=== PATIENT | male | born 1950 | race Caucasian/White ===

== ENCOUNTER → 2016-08-18 | Outpatient (CLI) | payer MEDICARE, OTHER, SELFPAY | LOC: MW.CHPS 08:00 | DX: L85.8 Other specified epidermal thickening (principal) | CPT/HCPCS: G0463 ==

== ENCOUNTER → 2016-09-06 | Outpatient (CLI) | payer MEDICARE, OTHER, SELFPAY | LOC: MW.CHPS 08:00 | PROVIDERS: ATTEND Physician Assistant | DX: L85.8 Other specified epidermal thickening (principal); Z98.890 Other specified postprocedural states | CPT/HCPCS: G0463 ==

== ENCOUNTER 2016-09-21 07:53 | Day surgery (SDC) | payer MEDICARE, OTHER, SELFPAY ==
[~2016-09-21 07:53] MED LIST: Bupivacaine 0.25%/EPINEPHrine 1:200,000 10 ML SDV ONE; Lidocaine 2% 5 ML SDV ONE; Midazolam 1 MG/ML 2 ML SDV ONE; Ondansetron 4 MG/2 ML SDV ONE; Propofol 200 MG/20 ML SDV ONE; Rocuronium 10 MG/ML 10 ML Syringe ONE; Succinylcholine/Normal Saline 200 MG/10 ML Syringe ONE; fentaNYL 250 MCG/5 ML SDV ONE
[2016-09-21] MEDS ORDERED: Clindamycin Phosphate in D5W 600 MG in Premix Bag 1 BAG IV ONE ×2 (08:00)
[2016-09-21] MEDS ORDERED: Acetaminophen/HYDROcodone 325-5 MG Tab PO PRN (08:00)
[2016-09-21] MEDS ORDERED: Bupivacaine 0.25%/EPINEPHrine 1:200,000 10 ML SDV INJECT ONE (08:00)
[2016-09-21] MEDS ORDERED: Lactated Ringers 1,000 ML IV SCH (08:00)
[2016-09-21] MEDS ORDERED: Albuterol/Ipratropium 3.0-0.5 MG/3 ML Neb Soln NEB ONE (09:06)
--- NOTE | 2016-09-21 09:10 | PCM.PREANE ---
Preanesthetic Assessment - Anesthesia/Transfusion/Family Hx Anesthesia History: Prior Anesthesia Without Reaction Family History of Anesthesia Reaction: No Transfusion History: No Prior Transfusion(s) - Review of Systems General: No Symptoms Pulmonary: No Symptoms Cardiovascular: No Symptoms Gastrointestinal: No symptoms Neurological: No Symptoms - Physical Assessment NPO Status Date: 09/21/16 NPO Status Time: 06:00 (black coffee with am meds) O2 Sat by Pulse Oximetry: 91 Respiratory Rate: 18 Vital Signs: Last Vital Signs Temp 35.9 C 09/21/16 08:19 Pulse 100 09/21/16 08:19 Resp 18 09/21/16 08:19 BP 137/73 09/21/16 08:19 Pulse Ox 91 L 09/21/16 08:19 Height: 1.8 m Weight: 134.263 kg ASA Class: 3 Mental Status: Alert & Oriented x3 Airway Class: Mallampati = 2 Dentition: Reports: Partial Lungs: Decreased breath sounds, Wheezing Cardiovascular: Regular Rate, Regular Rhythm - Allergies Allergies/Adverse Reactions: Allergies Allergy/AdvReac Type Severity Reaction Status Date / Time No Known Allergies Allergy Verified 07/20/16 13:30 - Anesthesia Plan Pre-Op Medication Ordered: Other (duoneb nebulizer) - Acknowledgements Anesthesia Type Planned: General Anesthesia Pt an Appropriate Candidate for the Planned Anesthesia: Yes Alternatives and Risks of Anesthesia Discussed w Pt/Guardian: Yes Pt/Guardian Understands and Agrees with Anesthesia Plan: Yes Additional Comments: surgeon requests nasotracheal intubation PreAnesthesia Questionnaire HEENT History: Reports: None Cardiovascular History: Reports: Hypertension Respiratory History: Reports: Other (see below) Other Respiratory History: denies asthma but states he has seasonal allergies and gets SOB at times Musculoskeletal History: Reports: Arthritis, Back pain, chronic Neurological History: Reports: Cerebral palsy Psychiatric History: Reports: Anxiety, Depression Endocrine/Metabolic History: Reports: Obesity/BMI 30+ - Past Surgical History Head Surgeries/Procedures: Reports: None HEENT Surgical History: Reports: Naso-sinus surgery, Tonsillectomy Dermatological Surgical History: Reports: Other (see below) - SUBSTANCE USE Smoking Status *Q: Current Every Day Smoker Tobacco Use Within Last Twelve Months: Cigarettes Recreational Drug Use History: No - HOME MEDS Home Medications: Home Meds Albuterol [Ventolin HFA] 1 puff INH ASDIRECTED PRN 07/20/16 [History] Fluticasone Propionate [Flonase Allergy Relief] 1 spray NASBOTH DAILY 07/20/16 [ History] Furosemide [Lasix] 40 mg PO DAILY 07/20/16 [History] Losartan Potassium 100 mg PO DAILY 07/20/16 [History] oxyCODONE HCl/Acetaminophen [Endocet 10-325 mg Tablet] 1 tab PO ASDIRECTED PRN 07/20/16 [History] - CURRENT (IN HOUSE) MEDS Current Meds: Current Medications Hydrocodone Bitart/Acetaminophen ([place] 325-5 Mg) 1 tab PO Q4H PRN PRN Reason: Pain Albuterol/Ipratropium (Duoneb 3.0-0.5 Mg/3 Ml) 3 ml NEB ONETIME ONE Stop: 09/21/16 09:07 Lactated Ringer's (Ringers, Lactated) 1,000 mls @ 125 mls/hr IV ASDIRECTED CHAY Last Admin: 09/21/16 08:20 Dose: 125 mls/hr Discontinued Medications Bupivacaine HCl/Epinephrine Bitart (Marcaine 0.25%/Epinephrine 1:200,000) 20 ml INJECT ONETIME ONE Stop: 09/21/16 08:01 Bupivacaine HCl/Epinephrine Bitart (Marcaine 0.25%/Epinephrine 1:200,000) Confirm Administered Dose 20 ml .ROUTE .STK-MED ONE Stop: 09/21/16 07:32 Fentanyl (Sublimaze) Confirm Administered Dose 250 mcg .ROUTE .STK-MED ONE Stop: 09/21/16 07:40 Clindamycin Phosphate 600 mg/ (Premix) 50 mls @ 150 mls/hr IV ONETIME ONE Stop: 09/21/16 08:19 Lidocaine (Xylocaine-Mpf 2%) Confirm Administered Dose 5 ml .ROUTE .STK-MED ONE Stop: 09/21/16 07:40 Midazolam HCl (Versed 1 Mg/Ml) Confirm Administered Dose 2 mg .ROUTE .STK-MED ONE Stop: 09/21/16 07:40 Ondansetron HCl (Zofran) Confirm Administered Dose 4 mg .ROUTE .STK-MED ONE Stop: 09/21/16 07:40 Propofol (Diprivan 20 Ml) Confirm Administered Dose 200 mg .ROUTE .STK-MED ONE Stop: 09/21/16 07:40 Rocuronium [place] (Zemuron) Confirm Administered Dose 100 mg .ROUTE .STK-MED ONE Stop: 09/21/16 07:40 Succinylcholine Chloride (Succinylcholine In Ns Pf) Confirm Administered Dose 200 mg .ROUTE .STK-MED ONE Stop: 09/21/16 07:40 Preanesthetic Assessment - ANESTHESIA/TRANSFUSION/FAMILY HX Anesthesia/Transfusion History: No Prior Transfusion(s), Prior Anesthesia (sinus , T+A: no anesthesia issues noted) Family History of Anesthesia Reaction: No - PHYSICAL ASSESSMENT O2 Sat by Pulse Oximetry: 91 RR: 18 Vital Signs: Last Vital Signs Temp 35.9 C 09/21/16 08:19 Pulse 100 09/21/16 08:19 Resp 18 09/21/16 08:19 BP 137/73 09/21/16 08:19 Pulse Ox 91 L 09/21/16 08:19 Height: 1.8 m Weight: 134.263 kg NPO Status Date: 09/21/16 NPO Status Time: 06:00 - ALLERGIES Allergies/Adverse Reactions: Allergies Allergy/AdvReac Type Severity Reaction Status Date / Time No Known Allergies Allergy Verified 07/20/16 13:30
[2016-09-21] MEDS ORDERED: Propofol 200 MG/20 ML SDV ONE (10:27)
[2016-09-21] MEDS ORDERED: Albuterol 6.7 GM Inhaler INH ONE (10:28)
[2016-09-21] MEDS ORDERED: Ipratropium 12.9 GM Inhaler ONE (10:28)
[2016-09-21] MEDS ORDERED: ePHEDrine 50 MG/ML SDV ONE (11:16)
[2016-09-21] MEDS ORDERED: Neostigmine Methylsulfate 1 MG/ML 5 ML Syringe ONE (11:35)
[2016-09-21] MEDS ORDERED: Lidocaine 2% Jelly 30 ML Tube ONE (11:51)
[2016-09-21] MEDS ORDERED: diphenhydrAMINE 50 MG/ML SDV ONE (12:51)
[2016-09-21] MEDS ORDERED: diphenhydrAMINE 50 MG/ML SDV IVPUSH SCH (13:00)
--- NOTE | 2016-09-21 13:24 | PCM.POSTAN ---
POST ANESTHESIA ASSESSMENT - MENTAL STATUS Mental Status: alert (Plan to limit oral intacke until wearing off of the local spray done in the oropharynx/v cords at beginning of the case), oriented - RESPIRATORY Respiratory Status: respiratory rate WNL, airway patent, O2 saturation stable - CARDIOVASCULAR CV Status: pulse rate WNL, blood pressure stable - GASTROINTESTINAL GI Status: no symptoms - POST OP HYDRATION Hydration Status: adequate & stable
--- NOTE | 2016-09-21 14:03 | PCM48HPAN ---
Post Anesthesia Note - EVALUATION WITHIN 48HRS OF ANESTHETIC Vital Signs in Normal Range: Yes Patient Participated in Evaluation: Yes Respiratory Function Stable: Yes Airway Patent: Yes Cardiovascular Function Stable: Yes Hydration Status Stable: Yes Pain Control Satisfactory: Yes Nausea and Vomiting Control Satisfactory: Yes Mental Status Recovered: Yes - COMMENTS/OBSERVATIONS Free Text/Narrative:: The lip looks great, patient able to talk out of the left side of his mouth, and he was happy with the anesthesia care.
[2016-09-21 14:18] VITALS: BP 99/62
--- NOTE | 2016-09-22 13:00 | PCM.OPNOTE ---
- General Post-Op/Procedure Note Date of Surgery/Procedure: 09/21/16 Operative Procedure(s): 1. excision of malignant lesion to upper lip through and through 5x5cm. 2. lip switch procedure from lower lip for reconstruction of defect (pedicled flap) Pre Op Diagnosis: upper lip malignancy Post-Op Diagnosis: Same Anesthesia Technique: General ET tube (nasal), Local Primary Surgeon: Cinthya Toribio Bereavement Counselor: Lisset Lowe Complications: None Condition: Good
--- NOTE | 2016-09-22 20:46 | OR ---
SURGEON: VALE SALAMANCA MD DATE OF PROCEDURE: 09/21/2016 PREOPERATIVE DIAGNOSIS: Upper lip malignancy. POSTOPERATIVE DIAGNOSIS: Upper lip malignancy, recurrent. OPERATIVE PROCEDURES: 1. Excision of malignant lesion to upper lip through and through 5 x 5 cm. 2. Lip switch procedure from lower lip for reconstruction of the defect (pedicle flap). LAMP TESTER AND INSPECTOR: Lisset Lowe. ANESTHESIA: General nasal endotracheal tube with local anesthesia. INDICATIONS: Mr. Ragsdale is a 65-year-old gentleman with an upper lip malignancy. 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 There is actinic change at the borders. Previous excision and closure was elected by the patient and unfortunately, the lip lesion recurred and continued to grow. Risks and benefits of excision with margins were discussed with him and the need for a lip switch procedure to close the upper lip was discussed. He would have like to avoid this, however, it is not possible with the current lesion and previous excision. Risks and benefits were discussed thoroughly and he was in agreement to proceed. Risks were including, but not limited to, bleeding, infection, damage to underlying or overlying structures, possible need for future interventions, possible scarring, and possible difficulties with lip tethering of the center portion for 2 weeks after the surgery. He understands that and will be compliant. PROCEDURE IN DETAIL: After informed consent was obtained and placed on the chart, the patient was brought to the operating theater and in supine position. After adequate nasal endotracheal tube intubation was completed, local anesthetic was infiltrated into the area, was prepped and draped in normal fashion using Betadine cleansing solution. Once adequately prepped and draped, attention was then paid to the side of the flaps. The malignancy to the upper lip was ulcerated, large, and necrotic. Margins were taken to ensure a cuff of normal tissue. Once adequately excised with a cuff of normal tissue, attention was then paid to meticulous hemostasis. Once adequate hemostasis, the area was irrigated and attention was paid to the planning of the lower lip flap. The upper lip lesion was too large for frozen sections, so was sent for permanent. Normal tissue was appreciated on all aspects of the excision. Once adequately excised, attention was then paid to planning of the lower lip flap. This was done slightly off midline to the right side taken to account the rotational arch. The lower lip excision was designed to go around the mentalis area to avoid dissection over the skin crease. It was measured to be slightly smaller than the upper lip defect. The approximately one-third at the lower lip to allow for closure and no significant complications here. After planning, attention was then paid to dissection of the lower lip skin flap measuring 4 x 5 cm. This was dissected through the skin taking care to leave the blood supply from the labial artery intact from the left side. This was rotated into place and closed in a layered fashion using 4-0 and 5-0 chromic stitches in a running fashion on the mucosal layer. [id number] 4-0 and 5-0 Monocryl stitches for the muscle layer and 5- 0 Prolene in bursts of running stitches for the skin. Great care was taken to avoid compromise of the pedicle. The lower lip flap remains tethered by its pedicle and lip skin. This is at the central portion of the lip leaving lateral space on both sides. With the inset, there was an excellent cosmetic outcome and good hemostasis. He was extubated in the operating room, and appreciated to be in stable condition prior to discharge home. FOLLOWUP INSTRUCTIONS: The patient will see us Monday in clinic, sooner if any problems, questions, or concerns. We will recheck at any point should he have any issues or questions. He will shower per usual. Wash it gently and apply only topical antibiotic ointment. He will not use any other cleansing products. He will cut back smoking as much as possible as well. [id number] / CHLOE /[id number]
== END 2016-09-21 14:25 | disposition home or self-care (01) ==
LOC: MW.SDS 07:53
PROVIDERS: ATTEND Plastic Surgery
PROC: 0CX0XZZ Transfer Upper Lip, External Approach (ICD-10-PCS; principal; 2016-09-21)
PROC: 0CB0XZZ Excision of Upper Lip, External Approach (ICD-10-PCS; 2016-09-21)
DX: C00.0 Malignant neoplasm of external upper lip (principal); I10 Essential (primary) hypertension; F17.210 Nicotine dependence, cigarettes, uncomplicated; M19.90 Unspecified osteoarthritis, unspecified site; G80.9 Cerebral palsy, unspecified; F41.9 Anxiety disorder, unspecified; F32.9 Major depressive disorder, single episode, unspecified; E66.9 Obesity, unspecified; Z79.899 Other long term (current) drug therapy; Z98.890 Other specified postprocedural states; Z90.89 Acquired absence of other organs; Z68.41 Body mass index [BMI] 40.0-44.9, adult
CPT/HCPCS: 40525; 88307; 94664; A9270; J2250; J2405; J3010; J7120; 00164; 00300; J2704

== ENCOUNTER → 2016-09-26 | Outpatient (CLI) | payer MEDICARE, OTHER, SELFPAY | LOC: MW.CHPS 08:00 | PROVIDERS: ATTEND Plastic Surgery | DX: C44.02 Squamous cell carcinoma of skin of lip (principal); Z48.817 Encounter for surgical aftercare following surgery on the skin and subcutaneous tissue | CPT/HCPCS: G0463 ==

== ENCOUNTER → 2016-09-29 | Outpatient (CLI) | payer MEDICARE | LOC: MW.CHPS 08:00 | PROVIDERS: ATTEND Plastic Surgery | DX: T81.31XA Disruption of external operation (surgical) wound, not elsewhere classified, initial encounter (principal); C44.02 Squamous cell carcinoma of skin of lip | CPT/HCPCS: 12020 ==

== ENCOUNTER 2016-10-12 06:19 | Day surgery (SDC) | payer MEDICARE, SELFPAY ==
--- NOTE | 2016-10-12 06:54 | PCM.PREANE ---
Preanesthetic Assessment - Anesthesia/Transfusion/Family Hx Anesthesia History: Prior Anesthesia Without Reaction Type of Anesthesia Reaction: Unknown Family History of Anesthesia Reaction: No Transfusion History: No Prior Transfusion(s) Anesthesia/Transfusion Comment: no known problems - Review of Systems General: No Symptoms Pulmonary: Shortness of Breath Cardiovascular: No Symptoms Gastrointestinal: No symptoms Neurological: No Symptoms Other: Reports: None - Physical Assessment O2 Sat by Pulse Oximetry: 89 Respiratory Rate: 16 Vital Signs: Last Vital Signs Temp 36.5 C 10/12/16 06:27 Pulse 104 H 10/12/16 06:27 Resp 16 10/12/16 06:27 BP 141/80 H 10/12/16 06:27 Pulse Ox 89 L 10/12/16 06:27 Height: 1.8 m Weight: 130.181 kg ASA Class: 3 Mental Status: Alert & Oriented x3 Airway Class: Mallampati = 2 Dentition: Reports: Partial (upper) Thyro-Mental Finger Breadths: 3 Mouth Opening Finger Breadths: 1 ROM/Head Extension: Limited/Partial Lungs: Clear to auscultation, Normal respiratory effort Cardiovascular: Regular Rate, Regular Rhythm - Allergies Allergies/Adverse Reactions: Allergies Allergy/AdvReac Type Severity Reaction Status Date / Time No Known Allergies Allergy Verified 07/20/16 13:30 - Blood Blood Available: No - Anesthesia Plan Pre-Op Medication Ordered: None - Acknowledgements Anesthesia Type Planned: MAC Pt an Appropriate Candidate for the Planned Anesthesia: Yes Alternatives and Risks of Anesthesia Discussed w Pt/Guardian: Yes Pt/Guardian Understands and Agrees with Anesthesia Plan: Yes PreAnesthesia Questionnaire HEENT History: Other HEENT History: wears glasses, 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 Cardiovascular History: Reports: Hypertension Respiratory History: Reports: COPD (sats 89% this morning, can not walk two blocks due to SOB. 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 of lip lesion with subsequent rotational skin flap) Dermatological Surgical History: Reports: Other (see below) - SUBSTANCE USE Smoking Status *Q: Current Every Day Smoker Tobacco Use Within Last Twelve Months: Cigarettes Recreational Drug Use History: No - HOME MEDS Home Medications: Home Meds Albuterol [Ventolin HFA] 1 puff INH ASDIRECTED PRN 07/20/16 [History] Fluticasone Propionate [Flonase Allergy Relief] 1 spray NASBOTH DAILY 07/20/16 [ History] Furosemide [Lasix] 40 mg PO DAILY 07/20/16 [History] Losartan Potassium 100 mg PO DAILY 07/20/16 [History] oxyCODONE HCl/Acetaminophen [Endocet 10-325 mg Tablet] 1 tab PO ASDIRECTED PRN # 30 tablet 09/21/16 [Rx] - CURRENT (IN HOUSE) MEDS Current Meds: Current Medications Bacitracin (Bacitracin Oint) 1 gm TOP ONETIME ONE Stop: 10/12/16 07:01 Bupivacaine HCl/Epinephrine Bitart ([place] 0.25%/Epinephrine 1:200,000) 10 ml INJECT ONETIME ONE Stop: 10/12/16 08:01 Clindamycin Phosphate 600 mg/ (Premix) 50 mls @ 150 mls/hr IV ONETIME ONE Stop: 10/12/16 07:19 Lactated Ringer's (Ringers, Lactated) 1,000 mls @ 125 mls/hr IV ASDIRECTED CHAY Last Admin: 10/12/16 06:31 Dose: 125 mls/hr
[2016-10-12] MEDS ORDERED: Albuterol/Ipratropium 3.0-0.5 MG/3 ML Neb Soln NEB ONE (06:57)
[2016-10-12] MEDS ORDERED: Lactated Ringers 1,000 ML IV SCH (07:00)
[2016-10-12] MEDS ORDERED: Clindamycin Phosphate in D5W 600 MG in Premix Bag 1 BAG IV ONE ×2 (07:00)
[2016-10-12] MEDS ORDERED: Bacitracin Oint 28.35 GM Tube TOP ONE (07:00)
[2016-10-12] MEDS ORDERED: Midazolam 1 MG/ML 2 ML SDV ONE (07:15)
[2016-10-12] MEDS ORDERED: Propofol 200 MG/20 ML SDV ONE (07:15)
[2016-10-12] MEDS ORDERED: Lidocaine 2% 5 ML SDV ONE (07:15)
[2016-10-12] MEDS ORDERED: Sodium Chloride 0.9% 20 ML ONE (07:19)
[2016-10-12] MEDS ORDERED: Bupivacaine 0.25%/EPINEPHrine 1:200,000 10 ML SDV ONE ×2 (07:24→08:15)
[2016-10-12] MEDS ORDERED: Bupivacaine 0.25%/EPINEPHrine 1:200,000 10 ML SDV INJECT ONE (08:00)
[2016-10-12] MEDS ORDERED: fentaNYL 100 MCG/2 ML SDV IVPUSH PRN (08:43)
[2016-10-12] MEDS ORDERED: Dexamethasone 4 MG/ML 5 ML MDV ONE (08:54)
--- NOTE | 2016-10-12 09:18 | PCM.POSTAN ---
POST ANESTHESIA ASSESSMENT - MENTAL STATUS Mental Status: alert, oriented - RESPIRATORY Respiratory Status: respiratory rate WNL, airway patent, O2 saturation stable - CARDIOVASCULAR CV Status: pulse rate WNL, blood pressure stable - GASTROINTESTINAL GI Status: no symptoms - POST OP HYDRATION Hydration Status: adequate & stable
[2016-10-12 11:12] VITALS: BP 118/62
--- NOTE | 2016-10-12 16:26 | PCM.OPNOTE ---
- General Post-Op/Procedure Note Date of Surgery/Procedure: 10/12/16 Operative Procedure(s): division and inset of cross lip flap Pre Op Diagnosis: cross lip flap for squamous cell Post-Op Diagnosis: Same Anesthesia Technique: Local, MAC Primary Surgeon: Cinthya Toribio Rail Operator: Lisset Lowe Complications: None Condition: Good Free Text/Narrative:: Intake & Output 10/12/16 10/12/16 10/12/16 07:59 15:59 23:59 Intake Total 900 Balance 900
--- NOTE | 2016-10-12 21:21 | OR ---
SURGEON: VALE SALAMANCA MD DATE OF PROCEDURE: 10/12/2016 PREOPERATIVE DIAGNOSIS: Cross lip flap status post squamous cell carcinoma excision, need for division. POSTOPERATIVE DIAGNOSIS: Cross lip flap status post squamous cell carcinoma excision, need for division. PROCEDURE: Division of cross lip flap and inset. INDICATIONS: Mr. Ragsdale is a 65-year-old gentleman with squamous cell cancer. Risks and benefits of release of the cross lip flap for reconstruction were discussed with him and he is in agreement to proceed. Risks were including, but not limited to, bleeding, infection, damage to underlying or overlying structures, possible need for future interventions and possible scarring. PROCEDURE IN DETAIL: After informed consent was obtained and placed on the chart, the patient was brought to the operating theater and laid in the supine position. After a time- out had been completed to confirm side and site, the area was injected with local anesthetic. After adequate injection, the cross lip flap was clamped and appreciated to be of good viability without the pedicle blood supply. The pedicle was then transected and the remaining portion of the skin was inset in an appropriate fashion. This was done using deep chromic stitches for the mucosa, Monocryls for the deeper layers, and 4-0 Prolene for the skin. This was then dressed with bacitracin. The patient tolerated the procedure well. All counts and needles were correct at the end the case. FOLLOWUP INSTRUCTIONS: The patient will see us next week in clinic, sooner if any problems, questions, or concerns. He will continue to take his home medications for pain control. HEGGTHE / MODL /[id number]
== END 2016-10-12 10:40 | disposition home or self-care (01) ==
LOC: MW.SDS 06:19
PROVIDERS: ATTEND Plastic Surgery
PROC: 0CX Mouth and Throat, Transfer (ICD-10-PCS; principal; 2016-10-12)
DX: C44.02 Squamous cell carcinoma of skin of lip (principal); J44.9 Chronic obstructive pulmonary disease, unspecified; I10 Essential (primary) hypertension; F17.210 Nicotine dependence, cigarettes, uncomplicated; M19.90 Unspecified osteoarthritis, unspecified site; G80.9 Cerebral palsy, unspecified; F41.9 Anxiety disorder, unspecified; F32.9 Major depressive disorder, single episode, unspecified; E66.9 Obesity, unspecified; Z79.51 Long term (current) use of inhaled steroids; Z79.899 Other long term (current) drug therapy; Z98.890 Other specified postprocedural states; Z90.89 Acquired absence of other organs; Z68.41 Body mass index [BMI] 40.0-44.9, adult
CPT/HCPCS: 15630; 94664; J1100; J2250; J7120; 00300; J2704

== ENCOUNTER → 2016-10-18 | Outpatient (CLI) | payer MEDICARE | LOC: MW.CHPS 08:00 | PROVIDERS: ATTEND Plastic Surgery | DX: Z48.817 Encounter for surgical aftercare following surgery on the skin and subcutaneous tissue (principal) ==

== ENCOUNTER → 2016-10-27 | Outpatient (CLI) | payer MEDICARE | LOC: MW.CHPS 08:00 | PROVIDERS: ATTEND Physician Assistant | DX: Z48.817 Encounter for surgical aftercare following surgery on the skin and subcutaneous tissue (principal) ==

== ENCOUNTER 2019-04-19 08:38 | Emergency (ER) | payer MEDICARE, SELFPAY ==
[2019-04-19] MEDS ORDERED: Albuterol/Ipratropium 3.0-0.5 MG/3 ML Neb Soln NEB ONE (08:40)
[2019-04-19] MEDS ORDERED: methylPREDNISolone Sodium Succinate 125 MG/2 ML SDV IVPUSH ONE (08:40)
[2019-04-19] MEDS ORDERED: Furosemide 40 MG/4 ML VIAL IVPUSH ONE (08:40)
--- NOTE | 2019-04-19 08:42 | EDM.PDOC ---
ED HPI GENERAL MEDICAL PROBLEM - General Stated Complaint: SOB Time Seen by Provider: 04/19/19 08:41 Source of Information: Reports: Patient - History of Present Illness INITIAL COMMENTS - FREE TEXT/NARRATIVE: HISTORY AND PHYSICAL: History of present illness: PT presents via ambulance with shortness of breath, O2 sat 60% at home with EMS arrival He was provided DuoNeb and Solu-Medrol on arrival requiring 6-8 L nonrebreather , who is alert on initial arrival and was transferred to our bed however shortly thereafter altered mental status developed ABG has returned with pH of 7.1 ] Review of systems: As per history of present illness and below otherwise all systems reviewed and negative. Past medical history: As per history of present illness and as reviewed below otherwise noncontributory. Surgical history: As per history of present illness and as reviewed below otherwise noncontributory. Social history: No reported history of drug or alcohol abuse. Family history: As per history of present illness and as reviewed below otherwise noncontributory. Physical exam: HEENT: Atraumatic, normocephalic, pupils reactive, negative for conjunctival pallor or scleral icterus, mucous membranes moist, throat clear, neck supple, nontender, trachea midline. Lungs: Clear to auscultation, breath sounds equal bilaterally, chest nontender. Heart: S1S2, regular, negative for clicks, rubs, or JVD. Abdomen: Soft, nondistended, nontender. Negative for masses or hepatosplenomegaly. Negative for costovertebral tenderness. Pelvis: Stable nontender. Genitourinary: Deferred. Rectal: Deferred. Extremities: Atraumatic, negative for cords or calf pain. Neurovascular unremarkable. Neuro: Awake, alert, oriented. Cranial nerves II through XII unremarkable. Cerebellum unremarkable. Motor and sensory unremarkable throughout. Exam nonfocal. Shortly after arrival patient began to have altered mental status Diagnostics: [CBC CMP UA troponin INR blood cultures 2 BN peptide Chest 1 view EKG ] Therapeutics: [ normal saline Lasix 40 mg IV DuoNeb Solu-Medrol ] Impression: Hypoxia [ short of breath] resp failure Respiratory acidosis CHF Definitive disposition and diagnosis as appropriate pending reevaluation and review of above. - Related Data Allergies Allergy/AdvReac Type Severity Reaction Status Date / Time No Known Allergies Allergy Verified 04/19/19 08:47 Home Meds: Home Meds Albuterol [Ventolin HFA] 1 puff INH ASDIRECTED PRN 07/20/16 [History] Fluticasone Propionate [Flonase Allergy Relief] 1 spray NASBOTH DAILY 07/20/16 [ History] Furosemide [Lasix] 40 mg PO DAILY 07/20/16 [History] Losartan Potassium 100 mg PO DAILY 07/20/16 [History] oxyCODONE HCl/Acetaminophen [Endocet 10-325 mg Tablet] 1 tab PO ASDIRECTED PRN # 30 tablet 09/21/16 [Rx] Past Medical History HEENT History: Other HEENT History: wears glasses, 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 - Past Surgical History HEENT Surgical History: Reports: Naso-Sinus Surgery, Tonsillectomy, Other (See Below) Dermatological Surgical History: Reports: Other (See Below) ED ROS GENERAL - Review of Systems Review Of Systems: See Below ED EXAM, GENERAL - Physical Exam Exam: See Below Course - Vital Signs Last Recorded V/S: Last Vital Signs Temp 97.5 F 04/19/19 09:00 Pulse 84 04/19/19 09:00 Resp 24 H 04/19/19 09:00 BP 138/84 04/19/19 09:00 Pulse Ox 96 04/19/19 09:00 - Orders/Labs/Meds Orders: Active Orders 24 hr Category Date Time Status EKG Documentation Completion [RC] STAT Care 04/19/19 08:41 Active RT Aerosol Therapy [RC] ASDIRECTED Care 04/19/19 08:40 Active Chest 1V Frontal [CR] Stat Exams 04/19/19 09:38 Ordered B-TYPE NATRIURETIC PEPTIDE,BNP [CHEM] Stat Lab 04/19/19 08:45 Received COMPREHENSIVE METABOLIC PN,CMP [CHEM] Stat Lab 04/19/19 08:45 Received CULTURE BLOOD [BC] Stat Lab 04/19/19 08:45 Received CULTURE BLOOD [BC] Stat Lab 04/19/19 08:58 Received TROPONIN I [CHEM] Stat Lab 04/19/19 08:45 Received Sodium Chloride 0.9% [Normal Saline] 1,000 ml Med 04/19/19 08:45 Active IV STAT Blood Culture x2 Reflex Set [OM.PC] Stat Oth 04/19/19 08:40 Ordered Medication Orders Sodium Chloride (Normal Saline) 1,000 mls @ 125 mls/hr IV STAT CHAY Last Admin: 04/19/19 08:51 Dose: 125 mls/hr Labs: Laboratory Tests 04/19/19 04/19/19 04/19/19 Range/Units 08:45 08:45 08:55 WBC 13.16 H (4.0-11.0) K/uL RBC 5.80 (4.50-5.90) M/uL Hgb 20.7 H (13.0-17.0) g/dL Hct 62.7 H (38.0-50.0) % MCV 108.1 H (80.0-98.0) fL MCH 35.7 H (27.0-32.0) pg MCHC 33.0 (31.0-37.0) g/dL RDW Std Deviation 62.8 H (28.0-62.0) fl RDW Coeff of Romie 16 H (11.0-15.0) % Plt Count 190 (150-400) K/uL MPV 10.70 (7.40-12.00) fL Neut % (Auto) 74.4 (48.0-80.0) % Lymph % (Auto) 13.9 L (16.0-40.0) % Whitfield % (Auto) 10.7 (0.0-15.0) % Eos % (Auto) 0.6 (0.0-7.0) % Baso % (Auto) 0.4 (0.0-1.5) % Neut # (Auto) 9.8 H (1.4-5.7) K/uL Lymph # (Auto) 1.8 (0.6-2.4) K/uL Whitfield # (Auto) 1.4 H (0.0-0.8) K/uL Eos # (Auto) 0.1 (0.0-0.7) K/uL Baso # (Auto) 0.1 (0.0-0.1) K/uL Nucleated RBC % 0.0 /100WBC Nucleated RBCs # 0 K/uL INR 1.17 ABG pH (7.35-7.45) ABG pCO2 (35-45) mmHG ABG pO2 (75-100) mmHG ABG HCO3 (22-26) mEq/L ABG Total CO2 ABG Base Excess (-2.0-2.0) Lactate 1.2 (0.20-2.00) mmol/L 04/19/19 Range/Units 09:05 WBC (4.0-11.0) K/uL RBC (4.50-5.90) M/uL Hgb (13.0-17.0) g/dL Hct (38.0-50.0) % MCV (80.0-98.0) fL MCH (27.0-32.0) pg MCHC (31.0-37.0) g/dL RDW Std Deviation (28.0-62.0) fl RDW Coeff of Romie (11.0-15.0) % Plt Count (150-400) K/uL MPV (7.40-12.00) fL Neut % (Auto) (48.0-80.0) % Lymph % (Auto) (16.0-40.0) % Whitfield % (Auto) (0.0-15.0) % Eos % (Auto) (0.0-7.0) % Baso % (Auto) (0.0-1.5) % Neut # (Auto) (1.4-5.7) K/uL Lymph # (Auto) (0.6-2.4) K/uL Whitfield # (Auto) (0.0-0.8) K/uL Eos # (Auto) (0.0-0.7) K/uL Baso # (Auto) (0.0-0.1) K/uL Nucleated RBC % /100WBC Nucleated RBCs # K/uL INR ABG pH 7.198 L* (7.35-7.45) ABG pCO2 97 H (35-45) mmHG ABG pO2 160 H (75-100) mmHG ABG HCO3 38 H (22-26) mEq/L ABG Total CO2 32.9 ABG Base Excess 4.0 H (-2.0-2.0) Lactate (0.20-2.00) mmol/L Meds: Medications Generic Name Dose Route Start Last Admin Trade Name Derrick PRN Reason Stop Dose Admin Sodium Chloride 1,000 mls @ 125 mls/hr 04/19/19 08:45 04/19/19 08:51 Normal Saline IV 125 mls/hr STAT CHAY Administration Discontinued Medications Generic Name Dose Route Start Last Admin Trade Name Derrick PRN Reason Stop Dose Admin Albuterol/Ipratropium 3 ml 04/19/19 08:40 04/19/19 08:47 Duoneb 3.0-0.5 Mg/3 Ml NEB 04/19/19 08:41 3 ml ONETIME ONE Administration Furosemide 40 mg 04/19/19 08:40 04/19/19 08:51 Lasix IVPUSH 04/19/19 08:41 40 mg NOW ONE Administration Propofol Confirm 04/19/19 09:37 Diprivan 100 Ml Administered 04/19/19 09:38 Dose 100 mls @ as directed .ROUTE .STK-MED ONE Methylprednisolone Sodium Succinate 125 mg 04/19/19 08:40 04/19/19 08:51 Solu-Medrol IVPUSH 04/19/19 08:41 125 mg ONETIME ONE Administration Sodium Bicarbonate 50 meq 04/19/19 09:24 04/19/19 09:31 Sodium Bicarbonate 8.4% IVPUSH 04/19/19 09:25 50 meq ONETIME ONE Administration Departure - Departure Time of Disposition: 09:45 Disposition: DC/Tfer to Acute Hospital 02 Condition: Serious Clinical Impression: Respiratory acidosis, Respiratory failure, Hypoxia, CHF (congestive heart failure) - Discharge Information - My Orders Last 24 Hours: My Active Orders 04/19/19 08:40 RT Aerosol Therapy [RC] ASDIRECTED Blood Culture x2 Reflex Set [OM.PC] Stat 04/19/19 08:41 EKG Documentation Completion [RC] STAT 04/19/19 08:45 B-TYPE NATRIURETIC PEPTIDE,BNP [CHEM] Stat COMPREHENSIVE METABOLIC PN,CMP [CHEM] Stat CULTURE BLOOD [BC] Stat TROPONIN I [CHEM] Stat Sodium Chloride 0.9% [Normal Saline] 1,000 ml IV STAT 04/19/19 08:58 CULTURE BLOOD [BC] Stat 04/19/19 09:38 Chest 1V Frontal [CR] Stat - Assessment/Plan Last 24 Hours: My Active Orders 04/19/19 08:40 RT Aerosol Therapy [RC] ASDIRECTED Blood Culture x2 Reflex Set [OM.PC] Stat 04/19/19 08:41 EKG Documentation Completion [RC] STAT 04/19/19 08:45 B-TYPE NATRIURETIC PEPTIDE,BNP [CHEM] Stat COMPREHENSIVE METABOLIC PN,CMP [CHEM] Stat CULTURE BLOOD [BC] Stat TROPONIN I [CHEM] Stat Sodium Chloride 0.9% [Normal Saline] 1,000 ml IV STAT 04/19/19 08:58 CULTURE BLOOD [BC] Stat 04/19/19 09:38 Chest 1V Frontal [CR] Stat
[2019-04-19] MEDS ORDERED: Sodium Chloride 0.9% 1,000 ML IV SCH (08:45)
[2019-04-19 09:11] VITALS: BP 138/84; PULSE 84
--- NOTE | 2019-04-19 09:19 | CR ---
INDICATION: Pain. TECHNIQUE: Chest 1 view COMPARISON: None. FINDINGS: No focal consolidation, pleural effusion, or pneumothorax. Heart size and pulmonary vascularity are exaggerated by portable technique. Possible fractures of the left 5th and 6th ribs posteriorly. These are age indeterminate. No definite callus formation. IMPRESSION: 1. No acute cardiopulmonary findings. 2. Possible fractures of the left 5th and 6th ribs posteriorly, age indeterminate. Recommend correlation with patient history and site of pain. Dictated by Eli Bravo MD @ Apr 19 2019 9:15AM Signed by Dr. Eli Bravo @ Apr 19 2019 9:18AM
[2019-04-19] MEDS ORDERED: Sodium Bicarbonate 8.4% 50 MEQ/50 ML Syringe IVPUSH ONE (09:24)
[2019-04-19] MEDS ORDERED: Midazolam 1 MG/ML 2 ML SDV ONE ×2 (09:55→09:56)
[2019-04-19] MEDS ORDERED: Pantoprazole 40 MG Vial IVPUSH ONE (09:55)
[2019-04-19] MEDS ORDERED: cefTRIAXone 1 GM in Premix Bag 1 BAG IV ONE (09:55)
[2019-04-19] MEDS ORDERED: Ondansetron 4 MG/2 ML SDV IVPUSH ONE (09:55)
[2019-04-19] MEDS ORDERED: Water For Injection, Sterile 40 ML ONE (09:58)
--- NOTE | 2019-04-19 10:18 | PCM.SN ---
- Free Text/Narrative Note: Called to the ER for intubation. On arrival pt is unresponsive to deep stimuli. RSI was then performed. Pre-VS HR 80 SR RR 16 Assist BVM SpO2 96% FiO2 - 100% BP - 132/76 Etomidate 20mg IVP Rocuronium 10mg IVP Succinylcholine 100mg IVP DL was performed with Oliveros 3 by Carly GARNETT. Grade I view. 8.0 Cuffed ETT placed without difficulty. +EtCO2, +BBS. 26cm at the lips. Versed 2 mg IV Rocuronium 40mg IVP Given for sedation and continued relaxation. Post VS HR 78 SR RR 12 Controlled BVM SpO2 - 97% FiO2 100% BP - 120/74 EtCO2 - 60 ABG was drawn from Rt radial artery by me. ABG and CXR pending at this time.
[2019-04-19 10:29] LABS: BLOOD UREA NITROGEN,BUN 39 mg/dL (7.0-18.0); CARBON DIOXIDE,CO2 35.1 mmol/L (21.0-32.0); CHLORIDE,CL 104 mmol/L (98-107); GLUCOSE RANDOM 133 mg/dL (74-106); POTASSIUM,K 4.6 mmol/L (3.5-5.1); SODIUM,NA 142 mmol/L (136-148)
--- NOTE | 2019-04-19 10:41 | CR ---
Indication: Intubation Technique: Chest 1 view Comparison: 04/19/2019 at 0903 hours Findings/Impression: Cardiovascular and mediastinum: Endotracheal tube is 2 cm above the katie. NG tube is seen into the stomach. Heart size is within normal limits. Lungs and pleural space: Interstitial congestive changes are new suggesting fluid overload. Lungs and pleural spaces are otherwise clear. No pneumothorax. Bones and soft tissues: No acute findings. Dictated by Maycol Haskins MD @ Apr 19 2019 10:37AM Signed by Dr. Maycol Haskins @ Apr 19 2019 10:39AM
== END 2019-04-19 10:26 ==
LOC: MW.ED 08:38
DX: J96.91 Respiratory failure, unspecified with hypoxia (principal); E87.2 Acidosis; I11.0 Hypertensive heart disease with heart failure; I50.9 Heart failure, unspecified; J44.9 Chronic obstructive pulmonary disease, unspecified; E66.9 Obesity, unspecified; Z68.41 Body mass index [BMI] 40.0-44.9, adult; Z79.51 Long term (current) use of inhaled steroids; Z79.899 Other long term (current) drug therapy
CPT/HCPCS: 31500; 36415; 36600; 71045; 80053; 82803; 83605; 83880; 84484; 85025; 85610; 93005; 94640; 96361; 96365; 96374; 96375; 99291; C9113; J0696; J1940; J2250; J2405; J2704; J2930; J7040; 99285; J7620-GY

== ENCOUNTER 2020-09-19 23:30 | Emergency (ER) | payer MEDICARE, SELFPAY ==
[2020-09-19] MEDS ORDERED: Sodium Chloride 0.9% 2.5 ML Syringe FLUSH PRN (23:34)
[2020-09-19] MEDS ORDERED: Sodium Chloride 0.9% 10 ML Syringe FLUSH PRN (23:34)
[2020-09-20 00:07] LABS: CARBON DIOXIDE,CO2 35.3 mmol/L (21.0-32.0); POTASSIUM,K 3.1 mmol/L (3.5-5.1)
--- NOTE | 2020-09-20 00:09 | CR ---
INDICATION: Hypoxia TECHNIQUE: Chest radiograph 1 view COMPARISON: None FINDINGS: Severe degradation of image quality noted due to body habitus. Mediastinum: The mediastinum is normal in appearance. Moderate cardiomegaly is noted. Lung: Bibasilar subsegmental atelectasis is present. No sign of pleural effusion seen. No pneumothorax is identified. Bone and Soft tissue: Unremarkable for age. IMPRESSIONS: 1. Bibasilar subsegmental atelectasis is present. 2. Moderate cardiomegaly is noted. Dictated by Bharat Brady MD @ 09/20/2020 12:08:18 AM Dictated by: Bharat Brady MD @ 09/20/2020 00:08:20 (Electronically Signed)
[2020-09-20] MEDS ORDERED: Iopamidol 755 MG/ML 500 ML Multipack Bottle IVPUSH STA (01:39)
--- NOTE | 2020-09-20 02:24 | CT ---
INDICATION: Elevated D-dimer TECHNIQUE: CT chest with i.v. contrast using pulmonary angiographic technique. Coronal and sagittal reformats were obtained. CONTRAST: 100 mL Isovue 370 COMPARISON: None FINDINGS: Cardiovascular: The pulmonary arteries are unremarkable in enhancement with no evidence of acute pulmonary embolism. Moderate enlargement of the main pulmonary artery is present and measures 3.2 cm in maximal short axis. Evaluation of the lower lobe pulmonary arteries are limited due to motion artifacts. Moderate enlargement of the right ventricle is noted. Ectasia of the ascending aorta is noted measuring 3.1 cm. Mediastinum: No mass or adenopathy seen. Lung: Linear discoid atelectasis is present within the lingula. Pleura and pericardium: No sign of pleural effusion seen. No significant pericardial effusion is present. Chest wall and axilla: Mild right axillary adenopathy is present with a lymph node measuring 1 cm. Bone: Unremarkable for age. Upper abdomen: Severe fatty infiltration of the liver is noted. Bilateral nodular adrenal calcifications are present which may be the result of previous infection or hemorrhage. Several tiny gallstones are seen clustered in the gallbladder neck. IMPRESSIONS: 1. No CT evidence of acute pulmonary emboli seen. 2. Moderate enlargement of the main pulmonary artery is present and measures 3.2 cm in maximal short axis. This is likely due to pulmonary hypertension. 3. Mild right axillary adenopathy is present with a lymph node measuring 1 cm. Dictated by Bharat Brady MD @ 09/20/2020 2:22:10 AM Please note that all CT scans at this facility use dose modulation, iterative reconstruction, and/or weight-based dosing when appropriate to reduce radiation dose to as low as reasonably achievable. Dictated by: Bharat Brady MD @ 09/20/2020 02:22:14 (Electronically Signed)
--- NOTE | 2020-09-20 02:27 | EDM.PDOC ---
ED HPI GENERAL MEDICAL PROBLEM - General Chief Complaint: General Stated Complaint: FALL Time Seen by Provider: 09/19/20 23:59 - History of Present Illness INITIAL COMMENTS - FREE TEXT/NARRATIVE: HISTORY AND PHYSICAL: History of present illness: This is a 69-year-old gentleman with a history significant for hypertension, COPD, CHF, squamous cell carcinoma, negative diabetes, negative CAD, who presents ER today by EMS secondary to generalized weakness. Patient reports that this evening he dropped his cell phone behind his recliner. He reports that he sat in the recliner to try to get his phone and I was unable to stand b ack up. Patient reports that he slid off his recliner and dragged himself on the floor to his bed hoping to pull himself into bed and was too weak to do it. Patient reports that he has had increased weakness throughout his body and generalized fatigue over the last day. Patient reports normally he is able to walk 20 feet in his house however currently he thinks he is unable to walk more than 3 to 4 feet. Patient denies any recent fevers, shakes, chills, nausea, vomiting, diarrhea, dysuria, frequency, urgency. Patient denies any chest pain or shortness of breath. Patient reports that he is chronically on 2 L of O2 by nasal cannula however he reports he does not keep that on all the time. Patient reports that he does have inhalers at home that he uses periodically but reports he "honestly does not use it that often". Review of systems: As per history of present illness and below otherwise all systems reviewed and negative. Past medical history: As per history of present illness and as reviewed below otherwise noncontributory. Surgical history: As per history of present illness and as reviewed below otherwise noncontributory. Social history: No reported history of drug or alcohol abuse. Family history: As per history of present illness and as reviewed below otherwise noncontributory. Physical exam: This patient was seen and evaluated during the 2019 SARS-CoV-2 novel coronavirus pandemic period. Community viral transmission is ongoing at time of this encounter and the emergency department is operating under pandemic response procedures. Constitutional: Patient is oriented to person, place, and time. Appears well- developed and well-nourished. No distress. HEENT: Moist mucous membranes Head: Normocephalic and atraumatic Eyes: Right eye exhibits no discharge. Left eye exhibits no discharge. No scleral icterus Neck: Normal range of motion. No tracheal deviation present. Cardiovascular: Normal rate and regular rhythm. Pulmonary: Effort normal, no respiratory distress. Abdominal: No distention Musculoskeletal: Normal range of motion Neurologic: Alert and oriented to person, place and time. Skin: [place], warm and dry. Psychiatric: Normal mood and affect. Behavior is normal. Judgment and thought content normal. Nursing note and vital signs have been reviewed Diagnostics: EKG: As interpreted by ER physician: Travis: Nonspecific ST-T wave abnormalities Normal axis No evidence of ST elevation MD Normal sinus rhythm heart rate of 97 Therapeutics: Aspirin 325 p.o. Assessment and plan: This is a 69-year-old gentleman who presents to the ER today secondary to generalized weakness and hypoxia per EMS. Patient reports that he slid down to the ground and reports that he did not fall down. Patient reports that he was sitting on his recliner and was unable to stand up and so he slid to the ground and was still unable to stand so crawled to his bed and tried to get in his bed to sleep. Patient reports he was too weak to get up so he called EMS. Upon EMS arrival they report that he was hypoxic and diaphoretic so they brought him here to the ED. Upon arrival to the ED, the patient was not complaining of any chest pain or shortness of breath. Patient's pulse ox is 88 to 92% on 2 L nasal cannula. Patient had labs drawn which revealed an elevated troponin of 0.153. Patient had a 3-hour troponin drawn which was greater than 0.40. Patient had a CTA obtained secondary to an elevated D-dimer. Patient CTA did not reveal any acute pathology. Surprisingly, the patient's BNP is 4. Patient's BUN and creatinine are slightly higher than his baseline. Patient has been given aspirin. Initially patient was adamant about not wanting to be transferred however given the elevation in his second troponin, patient understands the concerns and the possibilities for coronary disease and has agreed to be transferred to a facility that can assist in further from a cardiac standpoint. 3:30 AM: Discussed the case with Dr. Ames at [facility] and he is agreed to accept patient in transfer to assist with arranging for cardiac evaluation. Critical Care: The high probability of sudden, clinically significant deterio ration in the patient's condition required the highest level of my preparedness to intervene urgently. The services I provided to this patient were to treat and/or prevent clinically significant deterioration. Services included the following: chart data review, reviewing nursing notes and/or old charts, documentation time, portrait consultant collaboration regarding findings and treatment options, medication orders and management, direct patient care, vital sign assessments and ordering, interpreting and reviewing diagnostic studies/lab tests. Aggregate critical care time includes only time during which I was engaged inwork directly related to the patient's care, as described above, whether at the bedside or elsewhere in the Emergency Department. It did not include time spent performing other reported procedures or the services of residents, students, nurses or physician assistants. Critical Care Time: 35 minutes Definitive disposition and diagnosis as appropriate pending reevaluation and review of above. 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 - Infectious Disease History Infectious Disease History: Reports: None - Past Surgical History Head Surgeries/Procedures: Reports: None HEENT Surgical History: Reports: Naso-Sinus Surgery, Tonsillectomy, Other (See Below) Dermatological Surgical History: Reports: Other (See Below) Social & Family History - Family History Family Medical History: No Pertinent Family History - Tobacco Use Tobacco Use Status *Q: Former Tobacco User Used Tobacco, but Quit: Yes Month/Year Tobacco Last Used: 08/2018 - Caffeine Use Caffeine Use: Reports: Coffee - Recreational Drug Use Recreational Drug Use: No ED ROS GENERAL - Review of Systems Review Of Systems: See Below ED EXAM, GENERAL - Physical Exam Exam: See Below Course - Vital Signs Last Recorded V/S: Last Vital Signs Temp 96.9 F 09/19/20 23:38 Pulse 90 09/20/20 02:37 Resp 20 09/20/20 02:37 BP 98/54 L 09/20/20 02:37 Pulse Ox 94 L 09/20/20 02:37 - Orders/Labs/Meds Orders: Active Orders 24 hr Category Date Time Status EKG Documentation Completion [RC] AM Care 09/20/20 00:10 Active Sodium Chloride 0.9% [Saline Flush] Med 09/19/20 23:34 Active 10 ml FLUSH ASDIRECTED PRN Sodium Chloride 0.9% [Saline Flush] Med 09/19/20 23:34 Active 2.5 ml FLUSH ASDIRECTED PRN Saline Lock Insert [OM.PC] Stat Oth 09/19/20 23:35 Ordered Medication Orders Sodium Chloride (Sodium Chloride 0.9% 10 Ml Syringe) 10 ml FLUSH ASDIRECTED PRN PRN Reason: Keep Vein Open Sodium Chloride (Sodium Chloride 0.9% 2.5 Ml Syringe) 2.5 ml FLUSH ASDIRECTED PRN PRN Reason: Keep Vein Open Labs: Laboratory Tests 09/19/20 09/19/20 09/19/20 Range/Units 23:40 23:40 23:40 WBC 15.60 H (4.0-11.0) K/uL RBC 3.96 L (4.50-5.90) M/uL Hgb 12.8 L (13.0-17.0) g/dL Hct 40.1 (38.0-50.0) % MCV 101.3 H (80.0-98.0) fL MCH 32.3 H (27.0-32.0) pg MCHC 31.9 (31.0-37.0) g/dL RDW Std Deviation 51.1 (28.0-62.0) fl RDW Coeff of Romie 14 (11.0-15.0) % Plt Count 186 (150-400) K/uL MPV 10.60 (7.40-12.00) fL Neut % (Auto) 84.9 H (48.0-80.0) % Lymph % (Auto) 8.3 L (16.0-40.0) % Person % (Auto) 5.4 (0.0-15.0) % Eos % (Auto) 1.2 (0.0-7.0) % Baso % (Auto) 0.2 (0.0-1.5) % Neut # (Auto) 13.3 H (1.4-5.7) K/uL Lymph # (Auto) 1.3 (0.6-2.4) K/uL Person # (Auto) 0.8 (0.0-0.8) K/uL Eos # (Auto) 0.2 (0.0-0.7) K/uL Baso # (Auto) 0.0 (0.0-0.1) K/uL Nucleated RBC % 0.0 /100WBC Nucleated RBCs # 0 K/uL D-Dimer, Quantitative 3.72 H (0.0-0.50) mg/L FEU Lactate 3.5 H* (0.20-2.00) mmol/L Sodium (136-148) mmol/L Potassium (3.5-5.1) mmol/L Chloride (98-107) mmol/L Carbon Dioxide (21.0-32.0) mmol/L BUN (7.0-18.0) mg/dL Creatinine (0.8-1.3) mg/dL Est Cr Clr Drug Dosing mL/min Estimated GFR (MDRD) ml/min Glucose (74-106) mg/dL Calcium (8.5-10.1) mg/dL Total Bilirubin (0.2-1.0) mg/dL AST (15-37) IU/L ALT (14-63) IU/L Alkaline Phosphatase (46-116) U/L Troponin I (0.000-0.056) ng/mL B-Natriuretic Peptide (<100) PG/ML Total Protein (6.4-8.2) g/dL Albumin (3.4-5.0) g/dL Globulin (2.6-4.0) g/dL Albumin/Globulin Ratio (0.9-1.6) Urine Color Urine Appearance Urine pH (5.0-8.0) Ur Specific [place] (1.001-1.035) Urine Protein (NEGATIVE) mg/dL Urine Glucose (UA) (NEGATIVE) mg/dL Urine Ketones (NEGATIVE) mg/dL Urine Occult Blood (NEGATIVE) Urine Nitrite (NEGATIVE) Urine Bilirubin (NEGATIVE) Urine Urobilinogen (<2.0) EU/dL Ur Leukocyte Esterase (NEGATIVE) Urine RBC (0-2/HPF) Urine WBC (0-5/HPF) Ur Epithelial Cells (NONE-FEW) Urine Bacteria (NEGATIVE) Urine Mucus (NONE-MOD) SARS-CoV-2 RNA ([place]) (NEGATIVE) 09/19/20 09/19/20 09/20/20 Range/Units 23:40 23:40 00:53 WBC (4.0-11.0) K/uL RBC (4.50-5.90) M/uL Hgb (13.0-17.0) g/dL Hct (38.0-50.0) % MCV (80.0-98.0) fL MCH (27.0-32.0) pg MCHC (31.0-37.0) g/dL RDW Std Deviation (28.0-62.0) fl RDW Coeff of Romie (11.0-15.0) % Plt Count (150-400) K/uL MPV (7.40-12.00) fL Neut % (Auto) (48.0-80.0) % Lymph % (Auto) (16.0-40.0) % Person % (Auto) (0.0-15.0) % Eos % (Auto) (0.0-7.0) % Baso % (Auto) (0.0-1.5) % Neut # (Auto) (1.4-5.7) K/uL Lymph # (Auto) (0.6-2.4) K/uL Person # (Auto) (0.0-0.8) K/uL Eos # (Auto) (0.0-0.7) K/uL Baso # (Auto) (0.0-0.1) K/uL Nucleated RBC % /100WBC Nucleated RBCs # K/uL D-Dimer, Quantitative (0.0-0.50) mg/L FEU Lactate (0.20-2.00) mmol/L Sodium 142 (136-148) mmol/L Potassium 3.1 L (3.5-5.1) mmol/L Chloride 98 (98-107) mmol/L Carbon Dioxide 35.3 H (21.0-32.0) mmol/L BUN 68 H (7.0-18.0) mg/dL Creatinine 1.5 H (0.8-1.3) mg/dL Est Cr Clr Drug Dosing 49.43 mL/min Estimated GFR (MDRD) 46.5 ml/min Glucose 170 H (74-106) mg/dL Calcium 9.3 (8.5-10.1) mg/dL Total Bilirubin 0.3 (0.2-1.0) mg/dL AST 38 H (15-37) IU/L ALT 42 (14-63) IU/L Alkaline Phosphatase 51 (46-116) U/L Troponin I 0.153 H* (0.000-0.056) ng/mL B-Natriuretic Peptide 4 (<100) PG/ML Total Protein 8.4 H (6.4-8.2) g/dL Albumin 3.4 (3.4-5.0) g/dL Globulin 5.0 H (2.6-4.0) g/dL Albumin/Globulin Ratio 0.7 L (0.9-1.6) Urine Color Urine Appearance Urine pH (5.0-8.0) Ur Specific [place] (1.001-1.035) Urine Protein (NEGATIVE) mg/dL Urine Glucose (UA) (NEGATIVE) mg/dL Urine Ketones (NEGATIVE) mg/dL Urine Occult Blood (NEGATIVE) Urine Nitrite (NEGATIVE) Urine Bilirubin (NEGATIVE) Urine Urobilinogen (<2.0) EU/dL Ur Leukocyte Esterase (NEGATIVE) Urine RBC (0-2/HPF) Urine WBC (0-5/HPF) Ur Epithelial Cells (NONE-FEW) Urine Bacteria (NEGATIVE) Urine Mucus (NONE-MOD) SARS-CoV-2 RNA ([place]) NEGATIVE (NEGATIVE) 09/20/20 09/20/20 Range/Units 01:53 02:40 WBC (4.0-11.0) K/uL RBC (4.50-5.90) M/uL Hgb (13.0-17.0) g/dL Hct (38.0-50.0) % MCV (80.0-98.0) fL MCH (27.0-32.0) pg MCHC (31.0-37.0) g/dL RDW Std Deviation (28.0-62.0) fl RDW Coeff of Romie (11.0-15.0) % Plt Count (150-400) K/uL MPV (7.40-12.00) fL Neut % (Auto) (48.0-80.0) % Lymph % (Auto) (16.0-40.0) % Person % (Auto) (0.0-15.0) % Eos % (Auto) (0.0-7.0) % Baso % (Auto) (0.0-1.5) % Neut # (Auto) (1.4-5.7) K/uL Lymph # (Auto) (0.6-2.4) K/uL Person # (Auto) (0.0-0.8) K/uL Eos # (Auto) (0.0-0.7) K/uL Baso # (Auto) (0.0-0.1) K/uL Nucleated RBC % /100WBC Nucleated RBCs # K/uL D-Dimer, Quantitative (0.0-0.50) mg/L FEU Lactate (0.20-2.00) mmol/L Sodium (136-148) mmol/L Potassium (3.5-5.1) mmol/L Chloride (98-107) mmol/L Carbon Dioxide (21.0-32.0) mmol/L BUN (7.0-18.0) mg/dL Creatinine (0.8-1.3) mg/dL Est Cr Clr Drug Dosing mL/min Estimated GFR (MDRD) ml/min Glucose (74-106) mg/dL Calcium (8.5-10.1) mg/dL Total Bilirubin (0.2-1.0) mg/dL AST (15-37) IU/L ALT (14-63) IU/L Alkaline Phosphatase (46-116) U/L Troponin I 0.489 H* (0.000-0.056) ng/mL B-Natriuretic Peptide (<100) PG/ML Total Protein (6.4-8.2) g/dL Albumin (3.4-5.0) g/dL Globulin (2.6-4.0) g/dL Albumin/Globulin Ratio (0.9-1.6) Urine Color YELLOW Urine Appearance CLEAR Urine pH 6.0 (5.0-8.0) Ur Specific [place] 1.010 (1.001-1.035) Urine Protein NEGATIVE (NEGATIVE) mg/dL Urine Glucose (UA) NEGATIVE (NEGATIVE) mg/dL Urine Ketones NEGATIVE (NEGATIVE) mg/dL Urine Occult Blood LARGE H (NEGATIVE) Urine Nitrite NEGATIVE (NEGATIVE) Urine Bilirubin NEGATIVE (NEGATIVE) Urine Urobilinogen 0.2 (<2.0) EU/dL Ur Leukocyte Esterase NEGATIVE (NEGATIVE) Urine RBC 0-1 (0-2/HPF) Urine WBC 0-3 (0-5/HPF) Ur Epithelial Cells OCCASIONAL (NONE-FEW) Urine Bacteria FEW (NEGATIVE) Urine Mucus LIGHT (NONE-MOD) SARS-CoV-2 RNA ([place]) (NEGATIVE) Meds: Medications Generic Name Dose Route Start Last Admin Trade Name Freq PRN Reason Stop Dose Admin Sodium Chloride 10 ml 09/19/20 23:34 Sodium Chloride 0.9% 10 Ml Syringe FLUSH ASDIRECTED PRN Keep Vein Open Sodium Chloride 2.5 ml 09/19/20 23:34 Sodium Chloride 0.9% 2.5 Ml Syringe FLUSH ASDIRECTED PRN Keep Vein Open Discontinued Medications Generic Name Dose Route Start Last Admin Trade Name Freq PRN Reason Stop Dose Admin Aspirin 324 mg 09/20/20 03:26 Aspirin 81 Mg Tab.Chew PO 09/20/20 03:27 ONETIME ONE Iopamidol 100 ml 09/20/20 01:39 09/20/20 01:39 Iopamidol 755 Mg/Ml 500 Ml Multipack Bottle IVPUSH 09/20/20 01:40 100 ml ONETIME STA Administration Departure - Departure Time of Disposition: 03:24 Disposition: DC/Tfer to Acute Hospital 02 Condition: Good Clinical Impression: Non-STEMI (non-ST elevated myocardial infarction), Elevated d-dimer, Generalized weakness - Discharge Information Referrals: PCP,None [Ordering Only Provider] - Forms: ED Department Discharge Sepsis Event Note (ED) - Evaluation Sepsis Screening Result: No Definite Risk - Focused Exam Vital Signs: Vital Signs Temp Pulse Resp BP Pulse Ox 09/20/20 02:37 90 20 98/54 L 94 L 09/19/20 23:38 96.9 F 97 24 H 92/54 L 88 L - My Orders Last 24 Hours: My Active Orders 09/19/20 23:34 Sodium Chloride 0.9% [Saline Flush] 10 ml FLUSH ASDIRECTED PRN Sodium Chloride 0.9% [Saline Flush] 2.5 ml FLUSH ASDIRECTED PRN 09/19/20 23:35 Saline Lock Insert [OM.PC] Stat 09/20/20 00:10 EKG Documentation Completion [RC] AM - Assessment/Plan Last 24 Hours: My Active Orders 09/19/20 23:34 Sodium Chloride 0.9% [Saline Flush] 10 ml FLUSH ASDIRECTED PRN Sodium Chloride 0.9% [Saline Flush] 2.5 ml FLUSH ASDIRECTED PRN 09/19/20 23:35 Saline Lock Insert [OM.PC] Stat 09/20/20 00:10 EKG Documentation Completion [RC] AM
[2020-09-20] MEDS ORDERED: Aspirin 81 MG Tab.Chew PO ONE (03:26)
[2020-09-20 03:36] VITALS: BP 108/58; PULSE 92
== END 2020-09-20 04:28 ==
LOC: MW.ED 23:30
DX: I21.4 Non-ST elevation (NSTEMI) myocardial infarction (principal); R79.1 Abnormal coagulation profile; R53.1 Weakness; I11.0 Hypertensive heart disease with heart failure; I50.9 Heart failure, unspecified; J44.9 Chronic obstructive pulmonary disease, unspecified; E66.9 Obesity, unspecified; Z68.42 Body mass index [BMI] 45.0-49.9, adult; Z87.891 Personal history of nicotine dependence; Z79.899 Other long term (current) drug therapy; Z20.822 Contact with and (suspected) exposure to COVID-19
CPT/HCPCS: 36415; 71045; 71275; 80053; 81001; 83605; 83880; 84484; 85025; 85379; 93005; 99285; A9270; Q9967; U0002; 93010; 99291